=== PATIENT | male | born 1995 | race Caucasian/White ===

== ENCOUNTER 2017-12-16 14:06 | Emergency (ER) | payer OTHER ==
[2017-12-16] MEDS ORDERED: TETRACAINE HCL 0.5% 2ML OPTH ONE (19:13)
[2017-12-16] MEDS ORDERED: FLUORESCEIN SODIUM 0.6 MG/WRAP ONE (19:14)
--- NOTE | 2017-12-16 19:30 | EDPHYS ---
Physician Documentation [facility] Name: Emery De La Rosa Age: 22 yrs Sex: Male : 1995 Arrival Date: 12/16/2017 Time: 14:09 Bed Treatment Private MD: ED Physician Cb Arnold HPI: 12/16 19:00 This 22 yrs old Male presents to ER via Wheelchair with complaints of Eye pm1 Problem. 19:00 The patient is experiencing redness, The patient sustained got a piece of pizza in his pm1 left eye. Onset: The symptoms/episode began/occurred 3 day(s) ago. Duration: the symptoms are continuous. Aggravated by nothing. Alleviated by eye flush. Associated signs and symptoms: Pertinent negatives: fever. Patient does not utilize any form of vision correction. Severity of symptoms: in the emergency department the symptoms have improved. The patient has not experienced similar symptoms in the past. The patient has not recently seen a physician. Historical: - Allergies: 14:31 Latex, Natural Rubber; aa5 - Home Meds: 14:31 None [Active]; aa5 - PMHx: 14:31 spina bifida; Shunt; Hydrocephalus; aa5 - PSHx: 14:31 Multiple back surgeries; aa5 - Immunization history:: Adult Immunizations up to date. - Social history:: Smoking status: Patient/guardian denies using tobacco. - Ebola Screening: : Patient denies exposure to infectious person Patient denies travel to an Ebola-affected area in the 21 days before illness onset. ROS: 19:00 Constitutional: Negative for fever, chills, and weight loss. pm1 19:00 ENT: Negative for injury, pain, and discharge, Neck: Negative for injury, pain, and swelling, Cardiovascular: Negative for chest pain, palpitations, and edema, Respiratory: Negative for shortness of breath, cough, wheezing, and pleuritic chest pain, Abdomen/GI: Negative for abdominal pain, nausea, vomiting, diarrhea, and constipation, Back: Negative for injury and pain, MS/Extremity: Negative for injury and deformity, Skin: Negative for injury, rash, and discoloration, Neuro: Negative for headache, weakness, numbness, tingling, and seizure. 19:00 Eyes: Positive for redness, Negative for foreign body sensation, pain, vision loss, visual disturbance. Exam: 19:00 Constitutional: This is a well developed, well nourished patient who is awake, alert, pm1 and in no acute distress. Head/Face: Normocephalic, atraumatic. 19:00 ENT: Nares patent. No nasal discharge, no septal abnormalities noted. Tympanic membranes are normal and external auditory canals are clear. Oropharynx with no redness, swelling, or masses, exudates, or evidence of obstruction, uvula midline. Mucous membranes moist. Neck: Trachea midline, no thyromegaly or masses palpated, and no cervical lymphadenopathy. Supple, full range of motion without nuchal rigidity, or vertebral point tenderness. No Meningismus. Chest/axilla: Normal chest wall appearance and motion. Nontender with no deformity. No lesions are appreciated. Cardiovascular: Regular rate and rhythm with a normal S1 and S2. No gallops, murmurs, or rubs. Normal PMI, no JVD. No pulse deficits. Respiratory: Lungs have equal breath sounds bilaterally, clear to auscultation and percussion. No rales, rhonchi or wheezes noted. No increased work of breathing, no retractions or nasal flaring. Abdomen/GI: Soft, non-tender, with normal bowel sounds. No distension or tympany. No guarding or rebound. No evidence of tenderness throughout. Back: No spinal tenderness. No costovertebral tenderness. Full range of motion. Skin: Warm, dry with normal turgor. Normal color with no rashes, no lesions, and no evidence of cellulitis. MS/ Extremity: Pulses equal, no cyanosis. Neurovascular intact. Full, normal range of motion. 19:00 Eyes: Periorbital structures: appear normal, Pupils: no acute changes, equal, round, and reactive to light and accomodation, Extraocular movements: intact throughout, Conjunctiva: injected, in the left eye, Corneas: are normal, no acute changes, abrasion, is not appreciated, foreign body, is not appreciated, a fluorescein strip employed to appreciate the findings. Vital Signs: 14:31 BP 130 / 75; Pulse 93; Resp 16; Temp 98.1(TE); Pulse Ox 98% ; Weight 84.82 kg; aa5 19:41 BP 128 / 77; Pulse 74; Resp 16; Temp 97.9(O); Pulse Ox 98% on R/A; mt Visual Acuity: 19:14 Left Eye Visual acuity 20/25, Pupil size 5 mm, ; Right Eye Visual acuity 20/20, Pupil bb size 5 mm, ; Both Eyes Visual acuity 20/25; Without Lenses; MDM: 18:48 Patient medically screened. pm1 19:27 Data reviewed: vital signs. Data interpreted: Pulse oximetry: on room air is 98 %. pm1 Interpretation: normal. Counseling: I had a detailed discussion with the patient and/or guardian regarding: the historical points, exam findings, and any diagnostic results supporting the discharge/admit diagnosis, the need for outpatient follow up, to return to the emergency department if symptoms worsen or persist or if there are any questions or concerns that arise at home. 12/16 18:52 Order name: Visual Acuity; Complete Time: 19:14 pm1 12/16 18:52 Order name: Eye Tray; Complete Time: 19:14 pm1 12/16 18:52 Order name: Fluoresene Opth strip; Complete Time: 19:14 pm1 Administered Medications: 19:20 Drug: Tetracaine Drops 0.5 % 1 drops Route: Ophthalmic; Site: left eye; sg Disposition: 12/16/17 19:29 Discharged to Home. Impression: Injury of conjunctiva and corneal abrasion without foreign body, left eye. - Condition is Stable. - Discharge Instructions: Eye Contusion. - Prescriptions for Erythromycin 5 mg/gram (0.5 %) Ophthalmic Ointment - apply 1 ribbon by OPHTHALMIC route every 8 hours; 1 tube. - Medication Reconciliation Form, Thank You Letter, Antibiotic Education form. - Follow up: Emergency Department; When: As needed; Reason: Worsening of condition. Follow up: Private Physician; When: 2 - 3 days; Reason: Recheck today's complaints, Continuance of care, Re-evaluation by your physician. - Problem is new. - Symptoms have improved. Addendum: 12/20/2017 07:07 Co-signature as Attending Physician, Cb Arnold MD I agree with the assessment and k dr plan of care. Signatures: Zana Paz RN RN Cb Arnold MD MD [facility] Geetha Lopez RN RN aa5 Branden Courtney NP TAPER MACHINE pm1 Corrections: (The following items were deleted from the chart) 12/16 19:59 19:29 12/16/2017 19:29 Discharged to Home. Impression: Injury of conjunctiva and sg corneal abrasion without foreign body, left eye. Condition is Stable. Forms are Medication Reconciliation Form, Thank You Letter, Antibiotic Education, Prescription Opioid Use. Follow up: Emergency Department; When: As needed; Reason: Worsening of condition. Follow up: Private Physician; When: 2 - 3 days; Reason: Recheck today's complaints, Continuance of care, Re-evaluation by your physician. Problem is new. Symptoms have improved. pm1
--- NOTE | 2017-12-16 19:30 | ER ---
Nurse's Notes [facility] Name: Emery De La Rosa Age: 22 yrs Sex: Male : 1995 Arrival Date: 12/16/2017 Time: 14:09 Bed Treatment Private MD: Diagnosis: Injury of conjunctiva and corneal abrasion without foreign body, left eye Presentation: 12/16 14:30 Presenting complaint: Patient states: L eye pain and redness that began 5 days ago aa5 after eating pizza. Transition of care: patient was not received from another setting of care. Onset of symptoms was December 12, 2017. Risk Assessment: Do you want to hurt yourself or someone else? Patient reports no desire to harm self or others. Initial Sepsis Screen: Does the patient meet any 2 criteria? No. Patient's initial sepsis screen is negative. Does the patient have a suspected source of infection? No. Patient's initial sepsis screen is negative. Care prior to arrival: None. 14:30 Method Of Arrival: Wheelchair aa5 14:30 Acuity: MICAH 5 aa5 Historical: - Allergies: 14:31 Latex, Natural Rubber; aa5 - Home Meds: 14:31 None [Active]; aa5 - PMHx: 14:31 spina bifida; Shunt; Hydrocephalus; aa5 - PSHx: 14:31 Multiple back surgeries; aa5 - Immunization history:: Adult Immunizations up to date. - Social history:: Smoking status: Patient/guardian denies using tobacco. - Ebola Screening: : Patient denies exposure to infectious person Patient denies travel to an Ebola-affected area in the 21 days before illness onset. Screenin:50 Abuse screen: Denies threats or abuse. Denies injuries from another. Nutritional sg screening: No deficits noted. Tuberculosis screening: No symptoms or risk factors identified. Never had TB. Fall Risk None identified. Assessment: 19:10 General: Appears in no apparent distress. Behavior is calm, cooperative. Pain: Denies bb pain. Neuro: Level of Consciousness is awake, alert, obeys commands, Oriented to person, place, time, situation. Cardiovascular: No deficits noted. Respiratory: Respiratory effort is even, unlabored. GI: No signs and/or symptoms were reported involving the gastrointestinal system. EENT: left eye reddened. Derm: Skin is pink, warm \T\ dry. Vital Signs: 14:31 BP 130 / 75; Pulse 93; Resp 16; Temp 98.1(TE); Pulse Ox 98% ; Weight 84.82 kg; aa5 19:41 BP 128 / 77; Pulse 74; Resp 16; Temp 97.9(O); Pulse Ox 98% on R/A; mt Visual Acuity: 19:14 Left Eye Visual acuity 20/25, Pupil size 5 mm, ; Right Eye Visual acuity 20/20, Pupil bb size 5 mm, ; Both Eyes Visual acuity 20/25; Without Lenses; ED Course: 14:09 Patient arrived in ED. sb2 14:31 Triage completed. aa5 14:31 Arm band placed on right wrist. aa5 18:26 Branden Courtney NP is PHCP. pm1 18:26 Cb Arnold MD is Attending Physician. pm1 19:50 Patient has correct armband on for positive identification. Pulse ox on. NIBP on. sg 19:50 Assist provider with eye exam. Patient did not have IV access during this emergency sg room visit. Administered Medications: 19:20 Drug: Tetracaine Drops 0.5 % 1 drops Route: Ophthalmic; Site: left eye; sg Outcome: 19:29 Discharge ordered by MD. pm1 19:55 Discharged to home via wheelchair. sg 19:55 Condition: good 19:55 Discharge instructions given to patient, Instructed on discharge instructions, follow up and referral plans. medication usage, safety practices, Demonstrated understanding of instructions, follow-up care, medications, Prescriptions given X 1. 19:59 Patient left the ED. sg Signatures: Zana Paz RN RN Deborah Garcia RN RN bb Calderon, Audri, RN RN [facility] Branden Courtney NP [employer] pm1 Lina Santos me Ariana Carpenter sb2 Corrections: (The following items were deleted from the chart) 19:57 19:20 Tetracaine Drops 0.5 % 1 drops Ophthalmic in right eye sg sg
[2017-12-16 21:07] VITALS: O2SAT 98
[2017-12-16 21:08] VITALS: BP 128/77; TEMP 97.9
== END 2017-12-16 19:59 | disposition home or self-care (01) ==
LOC: ER 14:06
DX: S05.02XA Injury of conjunctiva and corneal abrasion without foreign body, left eye, initial encounter (principal); X58.XXXA Exposure to other specified factors, initial encounter; Y92.019 Unspecified place in single-family (private) house as the place of occurrence of the external cause; Z91.040 Latex allergy status; Z91.048 Other nonmedicinal substance allergy status; Q05.4 Unspecified spina bifida with hydrocephalus
CPT/HCPCS: 99284

== ENCOUNTER 2018-06-16 07:04 | Day surgery (SDC) | payer OTHER ==
[2018-06-13 11:57] LABS: Absolute Lymphocytes (CBC) 1.9 K/uL (0.7-4.9); Absolute Monocytes 0.6 K/uL (0.1-1.3); Absolute Neutrophil 4.2 K/uL (1.8-8.0); Basophils % 0.6 % (0-1.3); Eosinophils % 1.8 % (0-4.4); Hematocrit 44.2 % (39.6-49.0); Lymphocytes % 27.5 % (15.3-44.8); MPV 8.2 fL (7.6-11.3); Monocytes % 8.8 % (3.3-12.3); RBC Red Blood Cell Count 5.07 M/uL (4.33-5.43)
[2018-06-13 12:00] LABS: Protime INR 1.11
[2018-06-13 12:04] LABS: BUN Blood Urea Nitrogen 20 mg/dL (7-18); Bicarbonate 31 mmol/L (21-32); Glucose Level 91 mg/dL (74-106); Potassium 4.3 mmol/L (3.5-5.1); Sodium Level 139 mmol/L (136-145)
[2018-06-16] MEDS ORDERED: Ringers Lactate 1,000 ML IV ONE (07:27)
[2018-06-16] MEDS ORDERED: LIDOCAINE 1% MPF 30 ML VIAL ONE (07:41)
[2018-06-16] MEDS ORDERED: BUPIVACAINE 0.5% PF 10 ML VIAL ONE (07:41)
[2018-06-16] MEDS ORDERED: MIDAZOLAM HCL 2 MG/2 ML INJ ONE (08:12)
[2018-06-16] MEDS ORDERED: PROPOFOL 200 MG/20 ML VIAL IV ONE (08:20)
[2018-06-16] MEDS ORDERED: LIDOCAINE 2% MPF 5 ML VIAL ONE (08:22)
--- NOTE | 2018-06-16 08:46 | P.OP ---
Preoperative diagnosis: right hallux osteomyelitis Postoperative diagnosis: same Primary procedure: right hallux ipj amputation Secondary procedure: none Other procedure(s): none Anesthesia: tiva with 5 cc 1:1 0.5% marcaine/1%lidocaine plain Estimated blood loss: <10cc Specimen: bone Findings: as above Operative Technique: Patient placed in the supine position. Iv sedation administered with 5cc 1:1 0.5% marcaine/1% lidocaine plain right hallux. Patient prepped and draped in usual aseptic manner. Right LE exsanguinated utilizing esmarch bandage and PAT inflated to 250 mmHg. Attention directed to right hallux at which time erythema and ulceration noted distal aspect with bone exposure. At this time two converging semieliptical incision place over IPJ. Skin incision carried straight to bone. Bone disarticulated at ipj. Wound irrigated with copious amounts of NSS. Closure obtained with 3-0 prolene. PAT deflated with prompt hyperemic response being noted. Dressing applied consisting of xeroform, 4X4s, kerlix and pedro wrap. Patient transferred from OR to recovery with vss Complications: None Transferred to: Recovery Room Condition: Good
[2018-06-16 09:13] VITALS: BP 107/68; TEMP 97; O2SAT 98
== END 2018-06-16 09:29 | disposition home or self-care (01) ==
LOC: OR 07:04
PROVIDERS: ATTEND Podiatrist Foot & Ankle Surgery
PROC: 0Y6P0Z3 Detachment at Right 1st Toe, Low, Open Approach (ICD-10-PCS; principal; 2018-06-16 08:15)
DX: M86.8X7 Other osteomyelitis, ankle and foot (principal); Q05.9 Spina bifida, unspecified; Z91.040 Latex allergy status
CPT/HCPCS: 36415; 80048; 85025; 85610; 85730; 88304; 88305; 88311; J2250; J2704

== ENCOUNTER 2018-09-01 12:16 | Emergency (ER) | payer OTHER ==
[2018-09-01 13:28] LABS: Urine Blood NEGATIVE (NEG); Urine Glucose NEGATIVE (NEG); Urine Protein NEGATIVE (NEG); Urine Specific Gravity 1.015 (1.005-1.030)
--- NOTE | 2018-09-01 13:33 | ER ---
Nurse's Notes [facility] Name: Emery De La Rosa Age: 23 yrs Sex: Male : 1995 Arrival Date: 09/01/2018 Time: 12:18 Bed 17 Private MD: out of town, doctor Diagnosis: Muscle spasm of back Presentation: 09/01 12:21 Presenting complaint: Patient states: hx of spina bifida, i had this mid back pain that hj started 2 weeks ago, denies skin breakdown; denies fever and chills;. Transition of care: patient was not received from another setting of care. Onset of symptoms was September 01, 2018. Risk Assessment: Do you want to hurt yourself or someone else? Patient reports no desire to harm self or others. Initial Sepsis Screen: Does the patient meet any 2 criteria? No. Patient's initial sepsis screen is negative. Does the patient have a suspected source of infection? No. Patient's initial sepsis screen is negative. Care prior to arrival: None. 12:21 Method Of Arrival: Ambulatory 12:21 Acuity: MICAH 4 hj Triage Assessment: 12:23 General: Appears in no apparent distress. uncomfortable, Behavior is calm, cooperative, hj appropriate for age. Pain: Complains of pain in back. Musculoskeletal: Circulation, motion, and sensation intact. Capillary refill < 3 seconds. Historical: - Allergies: 12:23 Latex, Natural Rubber; hj - Home Meds: 12:23 None [Active]; hj - PMHx: 12:23 Hydrocephalus; Shunt; spina bifida; hj - PSHx: 12:23 Multiple back surgeries; hj - Immunization history:: Adult Immunizations not up to date. - Social history:: Smoking status: Patient/guardian denies using tobacco, Patient uses alcohol. - Ebola Screening: : Patient negative for fever greater than or equal to 101.5 degrees Fahrenheit, and additional compatible Ebola Virus Disease symptoms Patient denies exposure to infectious person Patient denies travel to an Ebola-affected area in the 21 days before illness onset. Screenin:23 Abuse screen: Denies threats or abuse. Denies injuries from another. Nutritional hj screening: No deficits noted. Tuberculosis screening: No symptoms or risk factors identified. Fall Risk None identified. Assessment: 12:35 General: Appears in no apparent distress. Behavior is calm, cooperative. Pain: ed1 Complains of pain in mid back area Pain does not radiate. Pain currently is 10 out of 10 on a pain scale. Quality of pain is described as aching, Pain began about 2 weeks ago. Neuro: Level of Consciousness is awake, alert, obeys commands, Oriented to person, place, time, situation. Cardiovascular: Denies chest pain, Heart tones S1 S2 present. Respiratory: Airway is patent Respiratory effort is even, unlabored, Respiratory pattern is regular, symmetrical, Breath sounds are clear bilaterally. Denies cough, shortness of breath. GI: No signs and/or symptoms were reported involving the gastrointestinal system. : Reports using self catheters. EENT: No signs and/or symptoms were reported regarding the EENT system. Derm: Skin is intact, is healthy with good turgor, Skin is dry, Skin is normal, Skin temperature is warm. Musculoskeletal: pt wheelchair bound, able to transfer self to bed from wheelchair. 12:50 Reassessment: Pt assisted to bathroom to perform straight cath for urine sample. ed1 13:25 Reassessment: Patient appears in no apparent distress at this time. No changes from ed1 previously documented assessment. Patient and/or family updated on plan of care and expected duration. Pain level reassessed. Patient is alert, oriented x 3, equal unlabored respirations, skin warm/dry/pink. Patient states symptoms have not improved. Vital Signs: 12:24 BP 122 / 80; Pulse 83; Resp 18; Temp 99.4(O); Pulse Ox 98% on R/A; Weight 83.91 kg; Height 5 ft. 6 in. (167.64 cm); Pain 10/10; 13:25 BP 124 / 72; Pulse 73; Resp 17; Pulse Ox 100% on R/A; Pain 10/10; ed1 12:24 Body Mass Index 29.86 (83.91 kg, 167.64 cm) ED Course: 12:18 Patient arrived in ED. mr 12:19 out of town, doctor is Private Physician. mr 12:23 Triage completed. 12:24 Arm band placed on right wrist. 12:24 Patient has correct armband on for positive identification. Bed in low position. Call light in reach. Side rails up X 1. 12:29 Roszak, Darryn, PA is PHCP. jr8 12:29 Cb Arnold MD is Attending Physician. jr8 12:32 Hannah Sandra, RN is Primary Nurse. ed1 13:46 No provider procedures requiring assistance completed. Patient did not have IV access ed1 during this emergency room visit. Administered Medications: No medications were administered Outcome: 13:32 Discharge ordered by . jr8 13:46 Discharged to home via wheelchair. ed1 13:46 Condition: good 13:46 Discharge instructions given to patient, Instructed on discharge instructions, follow up and referral plans. medication usage, Demonstrated understanding of instructions, follow-up care, medications, Prescriptions given X 2. 13:47 Patient left the ED. ed1 Signatures: Blank Lisset mr Hannah Sandra, RN RN ed1 Darryn Hyatt PA PA jr8 Pavel Kong RN RN hj Corrections: (The following items were deleted from the chart) 12:27 12:24 Pulse 83bpm; Resp 18bpm; Pulse Ox 98% RA; Temp 99.4F Oral; 83.91 kg; Height 5 ft. hj 6 in.; BMI: 29.8; Pain 10/10; hj
--- NOTE | 2018-09-01 13:33 | EDPHYS ---
Physician Documentation [facility] Name: Emery De La Rosa Age: 23 yrs Sex: Male : 1995 Arrival Date: 09/01/2018 Time: 12:18 Bed 17 Private MD: out of town, doctor ED Physician Cb Arnold HPI: 09/01 13:31 This 23 yrs old Male presents to ER via Ambulatory with complaints of Back jr8 Pain. 13:31 The patient presents with pain that is acute. The symptoms are located in the left mid jr8 back and right mid back. Onset: The symptoms/episode began/occurred gradually, 2 day(s) ago. The pain does not radiate. Associated signs and symptoms: The patient has no apparent associated signs or symptoms. The problem was sustained from unknown cause. Modifying factors: The patient symptoms are alleviated by nothing, the patient symptoms are aggravated by bending, movement. Severity of symptoms: At their worst the symptoms were moderate, in the emergency department the symptoms are unchanged. The patient has not experienced similar symptoms in the past. The patient has not recently seen a physician. Denies trauma. Historical: - Allergies: 12:23 Latex, Natural Rubber; hj - Home Meds: 12:23 None [Active]; hj - PMHx: 12:23 Hydrocephalus; Shunt; spina bifida; hj - PSHx: 12:23 Multiple back surgeries; hj - Immunization history:: Adult Immunizations not up to date. - Social history:: Smoking status: Patient/guardian denies using tobacco, Patient uses alcohol. - Ebola Screening: : Patient negative for fever greater than or equal to 101.5 degrees Fahrenheit, and additional compatible Ebola Virus Disease symptoms Patient denies exposure to infectious person Patient denies travel to an Ebola-affected area in the 21 days before illness onset. ROS: 13:31 Eyes: Negative for injury, pain, redness, and discharge, ENT: Negative for injury, jr8 pain, and discharge, Neck: Negative for injury, pain, and swelling, Cardiovascular: Negative for chest pain, palpitations, and edema, Respiratory: Negative for shortness of breath, cough, wheezing, and pleuritic chest pain, Abdomen/GI: Negative for abdominal pain, nausea, vomiting, diarrhea, and constipation, MS/Extremity: Negative for injury and deformity, Skin: Negative for injury, rash, and discoloration, Neuro: Negative for headache, weakness, numbness, tingling, and seizure. 13:31 Back: Positive for pain at rest, pain with movement, of the left mid back and right mid back. Exam: 13:31 Eyes: Pupils equal round and reactive to light, extra-ocular motions intact. Lids and jr8 lashes normal. Conjunctiva and sclera are non-icteric and not injected. Cornea within normal limits. Periorbital areas with no swelling, redness, or edema. ENT: Nares patent. No nasal discharge, no septal abnormalities noted. Tympanic membranes are normal and external auditory canals are clear. Oropharynx with no redness, swelling, or masses, exudates, or evidence of obstruction, uvula midline. Mucous membranes moist. Neck: Trachea midline, no thyromegaly or masses palpated, and no cervical lymphadenopathy. Supple, full range of motion without nuchal rigidity, or vertebral point tenderness. No Meningismus. Cardiovascular: Regular rate and rhythm with a normal S1 and S2. No gallops, murmurs, or rubs. Normal PMI, no JVD. No pulse deficits. Respiratory: Lungs have equal breath sounds bilaterally, clear to auscultation and percussion. No rales, rhonchi or wheezes noted. No increased work of breathing, no retractions or nasal flaring. Abdomen/GI: Soft, non-tender, with normal bowel sounds. No distension or tympany. No guarding or rebound. No evidence of tenderness throughout. Skin: Warm, dry with normal turgor. Normal color with no rashes, no lesions, and no evidence of cellulitis. MS/ Extremity: Pulses equal, no cyanosis. Neurovascular intact. Full, normal range of motion. Neuro: Awake and alert, GCS 15, oriented to person, place, time, and situation. Cranial nerves II-XII grossly intact. Motor strength 5/5 in all extremities. Sensory grossly intact. Cerebellar exam normal. Normal gait. 13:31 Back: pain, that is moderate, of the left mid back and right mid back, ROM is painful, normal spinal alignment noted, CVA tenderness, is absent, muscle spasm, is appreciated in the left mid back and right mid back. Vital Signs: 12:24 BP 122 / 80; Pulse 83; Resp 18; Temp 99.4(O); Pulse Ox 98% on R/A; Weight 83.91 kg; hj Height 5 ft. 6 in. (167.64 cm); Pain 10/10; 13:25 BP 124 / 72; Pulse 73; Resp 17; Pulse Ox 100% on R/A; Pain 10/10; ed1 12:24 Body Mass Index 29.86 (83.91 kg, 167.64 cm) hj MDM: 12:42 Patient medically screened. jr8 13:31 Data reviewed: vital signs, nurses notes, lab test result(s), and as a result, I will jr8 discharge patient. Data interpreted: Pulse oximetry: on room air is 100 %. Interpretation: normal. Counseling: I had a detailed discussion with the patient and/or guardian regarding: the historical points, exam findings, and any diagnostic results supporting the discharge/admit diagnosis, lab results, the need for outpatient follow up, a family practitioner, to return to the emergency department if symptoms worsen or persist or if there are any questions or concerns that arise at home. 09/01 13:14 Order name: Urine Dipstick--Ancillary (enter results); Complete Time: 13:31 09/01 12:49 Order name: Urine Dipstick-Ancillary (obtain specimen); Complete Time: 13:24 jr Administered Medications: No medications were administered Disposition: 15:44 Co-signature as Attending Physician, Cb Arnold MD I agree with the assessment and kdr plan of care. Disposition: 09/01/18 13:32 Discharged to Home. Impression: Muscle spasm of back. - Condition is Stable. - Discharge Instructions: Muscle Cramps and Spasms, Back Exercises, [id number], Heat Therapy. - Prescriptions for Ultracet 37.5- 325 mg Oral Tablet - take 1 tablet by ORAL route every 6 hours - for up to 5 days; do not exceed 8 tablets per day.; 30 tablet. Zanaflex 4 mg Oral Tablet - take 1 tablet by ORAL route every 8 hours As needed; 20 tablet. - Medication Reconciliation Form, Thank You Letter, Antibiotic Education, Prescription Opioid Use form. - Follow up: Private Physician; When: 5 - 6 days; Reason: Recheck today's complaints, Continuance of care, Re-evaluation by your physician. - Problem is new. - Symptoms have improved. Signatures: Dispatcher [employer] EDMS Cb Arnold MD MD kdr Hannah Sandra RN RN ed1 Darryn Hyatt PA PA jr8 Pavel Kong RN RN hj Corrections: (The following items were deleted from the chart) 13:47 13:32 09/01/2018 13:32 Discharged to Home. Impression: Muscle spasm of back. Condition ed1 is Stable. Forms are Medication Reconciliation Form, Thank You Letter, Antibiotic Education, Prescription Opioid Use. Follow up: Private Physician; When: 5 - 6 days; Reason: Recheck today's complaints, Continuance of care, Re-evaluation by your physician. Problem is new. Symptoms have improved. jr8
[2018-09-01 13:52] VITALS: TEMP 99.4
[2018-09-01 13:54] VITALS: BP 124/72; O2SAT 100
== END 2018-09-01 13:47 | disposition home or self-care (01) ==
LOC: ER 12:16
DX: M62.830 Muscle spasm of back (principal); Z91.040 Latex allergy status; Z91.048 Other nonmedicinal substance allergy status
CPT/HCPCS: 81003; 99282

== ENCOUNTER 2020-05-01 13:39 | Emergency (ER) | payer OTHER ==
[2020-05-01] MEDS ORDERED: FENTANYL CITR 100 MCG/2 ML ONE (14:46)
[2020-05-01] MEDS ORDERED: ONDANSETRON 4 MG/2 ML VIAL ONE (14:46)
[2020-05-01 15:05] LABS: Absolute Lymphocytes (CBC) 1.1 K/uL (0.7-4.9); Basophils % 0.2 % (0-1.3); Hematocrit 43.8 % (39.6-49.0); Lymphocytes % 5.8 % (15.3-44.8); MPV 8.6 fL (7.6-11.3); RBC Red Blood Cell Count 4.97 M/uL (4.33-5.43)
[2020-05-01 15:23] LABS: ALT/SGPT 24 U/L (12-78); AST/SGOT 13 U/L (15-37); Alkaline Phosphatase 81 U/L (45-117); BUN Blood Urea Nitrogen 13 mg/dL (7-18); Bicarbonate 26 mmol/L (21-32); Bilirubin Total 0.7 mg/dL (0.2-1.0); Glucose Level 110 mg/dL (74-106); Potassium 3.7 mmol/L (3.5-5.1); Protein, Total 7.8 g/dL (6.4-8.2); Sodium Level 138 mmol/L (136-145)
--- NOTE | 2020-05-01 16:15 | RAD REPORT ---
EXAM DESCRIPTION: US - Scrotum Testicles - 05/01/2020 3:35 pm CLINICAL HISTORY: scrotal swelling COMPARISON: Scrotum Testicles dated 06/12/2016 FINDINGS: Testicular tissue is homogeneous with no focal testicular mass. Doppler evaluation shows n ormal blood flow within the testicular tissue. Small to moderate size right-sided hydrocele present w ith echogenic debris within the fluid. Trace amount of fluid noted on the left. No epididymis enlarge ment or hyperemia. Scrotal wall appears slightly thickened. No focal mass or fluid collection in the scrotal wall. IMPRESSION: No intratesticular mass or abnormality. Normal blood flow seen within the testicular tis kirsten. No epididymis enlargement or hyperemia. Right-sided hydrocele with trace left-sided fluid.
[2020-05-01] MEDS ORDERED: NA CHLORIDE 0.9% 1,000 ML ONE (16:49)
[2020-05-01 16:55] LABS: Urine Blood 1+ (NEG); Urine Glucose 1+ (NEG); Urine Protein TRACE (NEG); Urine pH 7.5 (5.0-7.0)
--- NOTE | 2020-05-01 16:57 | RAD REPORT ---
EXAM DESCRIPTION: CT - Abdomen Pelvis W Contrast - 05/01/2020 4:44 pm CLINICAL HISTORY: lower abdominal pain, groin pain COMPARISON: No comparisons TECHNIQUE: Biphasic, helical CT imaging of the abdomen and pelvis was performed following 100 ml non -ionic IV contrast. No oral contrast administered acetabular abnormalities. 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 All CT scans are performed using dose optimization technique as appropriate and may include automated exposure control or mA/KV adjustment according to patient size. FINDINGS: No suspicious findings in the lung bases. Liver size is normal with attenuation deformity of each acetabulum and femoral head noted. Patient ma y have diminished or absent ambulation. Borderline fatty infiltrated. No focal liver lesions. Spleen and pancreas show no suspicious findings. Gallbladder and biliary tree are also without suspicious fi nding. Symmetric renal function is seen with no hydronephrosis or suspicious renal mass. No pyelonephritis o r acute parenchymal process. No bladder abnormalities. No adrenal abnormalities. Urinary bladder is contracted. Prostate gland and seminal vesicles are normal. Prostate gland is low lying along the pelvic floor the patient may have chronic pelvic laxity. No dilated bowel loops or bowel wall thickening. Appendix is normal. There is no active GI process id entifiable. CHECK TOTALER shunt tube is in place. Only trace amounts of free fluid in the peritoneal cavity. No free air or pneumatosis. No inflammatory stranding. No hernia, mass or bulky lymphadenopathy. Patient has accentuated lordosis in addition to the lower lumbar spine with congenital deformity eryn g the posterior elements at the lumbosacral junction. Soft tissue thickening is present from the post erior elements to the skin surface in this region. This is believed to be chronic. The adjacent fat s hows no edema or stranding. No inguinal hernia. No mass or fluid in either inguinal canal. Scrotal fluid is present addressed in the separate ultrasound report. IMPRESSION: Contrast enhanced CT abdomen and pelvis showing no acute or emergent finding. Nonacute findings detailed in the body of the report.
--- NOTE | 2020-05-01 18:22 | EDPHYS ---
Physician Documentation [facility] Name: Emery De La Rosa Age: 24 yrs Sex: Male : 1995 Arrival Date: 05/01/2020 Time: 13:39 Bed 24 Private MD: ED Physician Cb Arnold HPI: 05/01 14:15 This 24 yrs old Male presents to ER via Wheelchair with complaints of jmm Testicular Swelling. 14:15 The patient presents with swelling, that is moderate. Onset: The symptoms/episode jmm began/occurred gradually, this morning. Modifying factors: The symptoms are alleviated by nothing, the symptoms are aggravated by pressure. Associated signs and symptoms: Pertinent positives: abdominal pain, Pertinent negatives: dysuria, fever. This is a 34 year old male with a history of spina bifida that presents to the ED with complaints of left scrotal pain which awoke this patient at 4 am. Denies fever, denies dysuria. . Historical: - Allergies: 13:43 Latex, Natural Rubber; sv - PMHx: 13:43 Hydrocephalus; Shunt; spina bifida; sv - PSHx: 13:43 Multiple back surgeries; sv - Immunization history:: Flu vaccine is not up to date. - Social history:: Smoking status: Patient denies any tobacco usage or history of. ROS: 14:15 Constitutional: Negative for fever, chills, and weight loss, Cardiovascular: Negative jmm for chest pain, palpitations, and edema, Respiratory: Negative for shortness of breath, cough, wheezing, and pleuritic chest pain. 14:15 : Positive for testicular pain 14:15 All other systems are negative. Exam: 14:15 Constitutional: This is a well developed, well nourished patient who is awake, alert, jmm and in no acute distress. Head/Face: atraumatic. Eyes: EOMI, no conjunctival erythema appreciated ENT: Moist Mucus Membranes Neck: Trachea midline, Supple Chest/axilla: Normal chest wall appearance and motion. Respiratory: Normal respirations, no respiratory distress appreciated 14:15 Back: Normal ROM Skin: General appearance color normal MS/ Extremity: Moves all extremities, no obvious deformities appreciated, no edema noted to the lower extremities Neuro: Awake and alert, normal gait Psych: Behavior is normal, Mood is normal, Patient is cooperative and pleasant 14:15 Cardiovascular: Rate: tachycardic, Rhythm: regular. 14:15 : Male external genitalia: erythema, of the left testicle is seen. Vital Signs: 13:43 BP 131 / 81; Pulse 125; Resp 20; Temp 98.7; Pulse Ox 99% ; sv 14:12 BP 148 / 57; Pulse 135; Resp 17 S; Pulse Ox 97% on R/A; ca1 15:15 BP 139 / 73; Pulse 135; Resp 17; Pulse Ox 95% on R/A; ca1 17:07 BP 121 / 63; Pulse 121; Resp 17 S; Pulse Ox 97% on R/A; ca1 18:09 BP 120 / 73; Pulse 121; Resp 18 S; Pulse Ox 98% on R/A; ca1 18:26 BP 133 / 82; Pulse 117; Resp 18 S; Pulse Ox 97% on R/A; ca1 MDM: 14:26 Patient medically screened. [facility] 18:19 Data reviewed: vital signs, nurses notes. Counseling: I had a detailed discussion with meghana the patient and/or guardian regarding: the historical points, exam findings, and any diagnostic results supporting the discharge/admit diagnosis, lab results, radiology results, the need for outpatient follow up, to return to the emergency department if symptoms worsen or persist or if there are any questions or concerns that arise at home. ED course: Patient is alert and non toxic in appearance in the ED. Pe findings concerning for cellulitis, will cover with oral abx. UA reveals concerns for UTI as well. Patient is advised to follow up with pcp and otherwise given strict return precautions. Patient understood and agrees with the plan of care. . 05/01 14:28 Order name: CBC with Diff; Complete Time: 15:24 [facility] 05/01 14:28 Order name: CMP; Complete Time: 15:24 [facility] 05/01 16:21 Order name: Lactate; Complete Time: 18:08 [facility] 05/01 16:21 Order name: Procalcitonin; Complete Time: 18:14 [facility] 05/01 16:21 Order name: Blood Culture Adult (2) [facility] 05/01 14:16 Order name: US Scrotum Testicles; Complete Time: 16:17 [facility] 05/01 16:21 Order name: CT Abd/Pelvis - IV Contrast Only; Complete Time: 17:01 [facility] 05/01 16:32 Order name: Urine Culture 05/01 16:35 Order name: Urine Dipstick--Ancillary (enter results); Complete Time: 17:01 05/01 14:28 Order name: Saline Lock; Complete Time: 16:31 [facility] 05/01 14:28 Order name: Urine Dipstick-Ancillary (obtain specimen); Complete Time: 16:30 [facility] Administered Medications: 14:39 Drug: Zofran (Ondansetron) 4 mg Route: IVP; Site: right wrist; ca1 15:22 Follow up: Response: No adverse reaction hb 18:31 Follow up: Response: No adverse reaction; Nausea is decreased ca1 14:41 Drug: fentaNYL (PF) 50 mcg {Note: rass 0.} Route: IVP; Site: right wrist; ca1 15:22 Follow up: Response: No adverse reaction hb 15:30 Follow up: Response: No adverse reaction; Pain is decreased; RASS: Alert and Calm (0) ca1 17:00 Drug: NS 0.9% 1000 ml Route: IV; Rate: 1 bolus; Site: right wrist; ca1 19:54 Follow up: IV Intake: 1000ml fu 18:19 Drug: Rocephin 1 grams Route: IV; Rate: calculated rate; Site: right wrist; ca1 18:30 Drug: TORadol 30 mg Route: IVP; Site: right wrist; ca1 Disposition: 05/02 15:59 Co-signature as Attending Physician, Cb Anrold MD I agree with the assessment and kdr plan of care. Disposition: 05/01/20 18:21 Discharged to Home. Impression: Scrotal Cellulitis, UTI. - Condition is Stable. - Discharge Instructions: Cellulitis, Adult, Urinary Tract Infection, Adult. - Prescriptions for Cephalexin 500 mg Oral Capsule - take 1 capsule by ORAL route every 6 hours for 10 days; 40 capsule. Bactrim DS 800- 160 mg Oral Tablet - take 1 tablet by ORAL route every 12 hours for 10 days; 20 tablet. - Medication Reconciliation Form, Thank You Letter, Antibiotic Education, Prescription Opioid Use form. - Follow up: Private Physician; When: 2 - 3 days; Reason: Recheck today's complaints, Continuance of care, Re-evaluation by your physician. Signatures: Dispatcher [facility] EDMS Rose Mary, Keyonna, RN Cb Vega MD MD kdr Mickail, Joel, PA PA jmm Umadhay, Felix, RN RN fu Acob, Cheryl, RN RN ca1 Baxter, Heather RN Corrections: (The following items were deleted from the chart) 05/01 20:17 18:21 05/01/2020 18:21 Discharged to Home. Impression: Scrotal Cellulitis; UTI. fu Condition is Stable. Forms are Medication Reconciliation Form, Thank You Letter, Antibiotic Education, Prescription Opioid Use. Follow up: Private Physician; When: 2 - 3 days; Reason: Recheck today's complaints, Continuance of care, Re-evaluation by your physician. meghana
--- NOTE | 2020-05-01 18:22 | ER ---
Nurse's Notes [facility] Name: Emery De La Rosa Age: 24 yrs Sex: Male : 1995 Arrival Date: 05/01/2020 Time: 13:39 Bed 24 Private MD: Diagnosis: Scrotal Cellulitis;UTI Presentation: 05/01 13:42 Chief complaint: Patient states: left swollen testicle noticed it today. Coronavirus sv screen: Client denies travel out of the [place] in the last 14 days. At this time, the client does not indicate any symptoms associated with coronavirus-19. Ebola Screen: No symptoms or risks identified at this time. Risk Assessment: Do you want to hurt yourself or someone else? Patient reports no desire to harm self or others. Onset of symptoms was May 01, 2020. 13:42 Method Of Arrival: Wheelchair sv 13:42 Acuity: MICAH 2 sv 13:43 Initial Sepsis Screen: Does the patient meet any 2 criteria? HR > 90 bpm. No. Patient's sv initial sepsis screen is negative. Does the patient have a suspected source of infection? No. Patient's initial sepsis screen is negative. Historical: - Allergies: 13:43 Latex, Natural Rubber; sv - PMHx: 13:43 Hydrocephalus; Shunt; spina bifida; sv - PSHx: 13:43 Multiple back surgeries; sv - Immunization history:: Flu vaccine is not up to date. - Social history:: Smoking status: Patient denies any tobacco usage or history of. Screenin:12 Abuse screen: Denies threats or abuse. Denies injuries from another. Nutritional ca1 screening: No deficits noted. Tuberculosis screening: No symptoms or risk factors identified. Fall Risk Ambulatory Aid- Crutches/Cane/Walker (15 pts). Assessment: 14:12 General: Appears in no apparent distress. uncomfortable, Behavior is calm, cooperative, ca1 appropriate for age. Pain: Complains of pain in left testicle Pain currently is 10 out of 10 on a pain scale. Pain began 0400 today Is continuous. Neuro: Level of Consciousness is awake, alert, obeys commands, Oriented to person, place, time, situation. : Genitalia appear normal on scrotum reports tenderness upon palpation Denies burning with urination, urinary frequency, urgency. Derm: Skin is intact, is healthy with good turgor, Skin is pink, warm \T\ dry. Musculoskeletal: Circulation, motion, and sensation intact. Capillary refill < 3 seconds. 15:15 Reassessment: Patient appears in no apparent distress at this time. Patient and/or ca1 family updated on plan of care and expected duration. Pain level reassessed. Patient is alert, oriented x 3, equal unlabored respirations, skin warm/dry/pink. 16:21 Reassessment: Patient appears in no apparent distress at this time. Patient and/or ca1 family updated on plan of care and expected duration. Pain level reassessed. Patient is alert, oriented x 3, equal unlabored respirations, skin warm/dry/pink. 17:20 Reassessment: Patient appears in no apparent distress at this time. Patient and/or ca1 family updated on plan of care and expected duration. Pain level reassessed. Patient is alert, oriented x 3, equal unlabored respirations, skin warm/dry/pink. 18:26 Reassessment: Patient appears in no apparent distress at this time. Patient and/or ca1 family updated on plan of care and expected duration. Pain level reassessed. Patient is alert, oriented x 3, equal unlabored respirations, skin warm/dry/pink. 18:30 Reassessment: To be discharged once IVF is completed. ca1 Vital Signs: 13:43 BP 131 / 81; Pulse 125; Resp 20; Temp 98.7; Pulse Ox 99% ; sv 14:12 BP 148 / 57; Pulse 135; Resp 17 S; Pulse Ox 97% on R/A; ca1 15:15 BP 139 / 73; Pulse 135; Resp 17; Pulse Ox 95% on R/A; ca1 17:07 BP 121 / 63; Pulse 121; Resp 17 S; Pulse Ox 97% on R/A; ca1 18:09 BP 120 / 73; Pulse 121; Resp 18 S; Pulse Ox 98% on R/A; ca1 18:26 BP 133 / 82; Pulse 117; Resp 18 S; Pulse Ox 97% on R/A; ca1 ED Course: 13:39 Patient arrived in ED. ds1 13:42 Arm band placed on. sv 13:43 Triage completed. sv 14:12 Patient has correct armband on for positive identification. Placed in gown. Bed in low ca1 position. Call light in reach. Side rails up X2. Pulse ox on. NIBP on. Warm blanket given. 14:15 Man Baltazar PA is PHCP. [facility] 14:15 Cb Arnold MD is Attending Physician. [facility] 14:23 Marlyn Gore, ALANA is Primary Nurse. ca1 14:38 Initial lab(s) drawn, by ED staff, sent to lab. Inserted saline lock: 20 gauge in right ca1 wrist, using aseptic technique. ,using aseptic technique. by ALANA Vallejo Blood collected. 15:35 US Scrotum Testicles In Process Unspecified. EDMS 16:44 CT Abd/Pelvis - IV Contrast Only In Process Unspecified. EDMS 17:02 First set of blood cultures drawn by me. ca1 17:06 Urine Microscopic Only Sent. ca1 17:06 Urine Culture Sent. ca1 17:06 Blood Culture Adult (2) Sent. ca1 17:06 Lactate Sent. ca1 17:06 Procalcitonin Sent. ca1 17:40 Second set of blood cultures drawn by me. jp3 20:16 No provider procedures requiring assistance completed. IV discontinued, bleeding fu controlled, Pressure dressing applied. Administered Medications: 14:39 Drug: Zofran (Ondansetron) 4 mg Route: IVP; Site: right wrist; ca1 15:22 Follow up: Response: No adverse reaction hb 18:31 Follow up: Response: No adverse reaction; Nausea is decreased ca1 14:41 Drug: fentaNYL (PF) 50 mcg {Note: rass 0.} Route: IVP; Site: right wrist; ca1 15:22 Follow up: Response: No adverse reaction hb 15:30 Follow up: Response: No adverse reaction; Pain is decreased; RASS: Alert and Calm (0) ca1 17:00 Drug: NS 0.9% 1000 ml Route: IV; Rate: 1 bolus; Site: right wrist; ca1 19:54 Follow up: IV Intake: 1000ml fu 18:19 Drug: Rocephin 1 grams Route: IV; Rate: calculated rate; Site: right wrist; ca1 18:30 Drug: TORadol 30 mg Route: IVP; Site: right wrist; ca1 Intake: 19:54 IV: 1000ml; Total: 1000ml. fu Outcome: 18:21 Discharge ordered by . [facility] 20:16 Discharged to home via wheelchair, with family. fu 20:16 Condition: stable 20:16 Discharge instructions given to patient, family, Instructed on discharge instructions, follow up and referral plans. Demonstrated understanding of instructions, follow-up care, Prescriptions given X 2. 20:17 Patient left the ED. Addendum: 05/05/2020 07:37 Addendum: Culture Results: Positive urine culture. No further action required. Bacteria h b sensitive to prescribed antibiotic. Signatures: Dispatcher [employer] Keyonna Andrews RN RN sv Mickail, Joel, PA PA jmm Sanford, Demi ds1 Genevieve Puente RN ALANA Dameon Loza RN RN Blaine Houston jp3 Marlyn Gore RN RN ca1 Corrections: (The following items were deleted from the chart) 05/01 13:57 13:42 Acuity: MICAH 3 [facility]
[2020-05-01] MEDS ORDERED: CEFTRIAXONE/SWI 1gm 1 GM/10 ML SYR ONE (18:31)
[2020-05-01] MEDS ORDERED: KETOROLAC 30 MG/ML INJ ONE (18:41)
[2020-05-01 20:38] VITALS: TEMP 98.7
[2020-05-01 20:49] VITALS: BP 133/82; O2SAT 97
== END 2020-05-01 20:17 | disposition home or self-care (01) ==
LOC: ER 13:39
DX: N49.2 Inflammatory disorders of scrotum (principal); N39.0 Urinary tract infection, site not specified; Q05.9 Spina bifida, unspecified; Z91.040 Latex allergy status; Z91.048 Other nonmedicinal substance allergy status
CPT/HCPCS: 87040 ×2; 87088; 85025; 87086; 36415; 83605; 87077; 87186; 81003; 80053; 84145; 74177; 76870; 96375; 96374; 99284; Q9967; J3010; J0696; J7030; J2405

== ENCOUNTER 2021-05-21 13:35 | Inpatient (IN) | payer OTHER ==
[2021-05-21 15:25] LABS: Absolute Lymphocytes (CBC) 2.1 K/uL (0.7-4.9); Basophils % 0.2 % (0-1.3); Hematocrit 44.9 % (39.6-49.0); Lymphocytes % 15.5 % (15.3-44.8); MPV 7.4 fL (7.6-11.3); RBC Red Blood Cell Count 5.07 M/uL (4.33-5.43)
[2021-05-21 15:30] LABS: Protime INR 1.09
[2021-05-21 15:45] LABS: ALT/SGPT 35 U/L (12-78); AST/SGOT 13 U/L (15-37); Albumin 3.9 g/dL (3.4-5.0); Alkaline Phosphatase 83 U/L (45-117); Amylase 81 U/L (25-115); BUN Blood Urea Nitrogen 17 mg/dL (7-18); Bicarbonate 29 mmol/L (21-32); Bilirubin Direct < 0.1 mg/dL (0-0.2); Bilirubin Total 0.4 mg/dL (0.2-1.0); Creatine Phosphokinase 63 U/L (39-308); Glucose Level 96 mg/dL (74-106); Lipase 85 U/L (73-393); Potassium 3.8 mmol/L (3.5-5.1); Protein, Total 7.9 g/dL (6.4-8.2); Sodium Level 141 mmol/L (136-145); Troponin (Emerg Dept Use Only) < 0.02 ng/mL (0.0-0.045)
[2021-05-21 15:45] LABS: Urine Blood Negative (Negative); Urine Glucose Negative (Negative); Urine Protein Negative (Negative)
[2021-05-21 15:47] LABS: CKMB Creatine Kinase MB < 1.0 ng/mL (1.0-3.6)
--- NOTE | 2021-05-21 15:51 | RAD REPORT ---
EXAM DESCRIPTION: RAD - Chest Single View - 05/21/2021 3:30 pm CLINICAL HISTORY: Bilateral lower extremity swelling COMPARISON: No comparisons FINDINGS: Lines: None. Lungs: No evidence of edema or pneumonia. Pleural: No significant pleural effusions or pneumothorax. Cardiac: The heart size is within normal limits. Bones: No acute fractures. 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 IMPRESSION: No acute cardiopulmonary disease.
[2021-05-21 16:03] LABS: Urine Bacteria LOADED /HPF (NONE SEEN); Urine RBC <5 /HPF (NONE SEEN)
[2021-05-21] MEDS ORDERED: CEFTRIAXONE 1000 MG/VIAL ONE (16:32)
[2021-05-21] MEDS ORDERED: NA CHLORIDE 0.9% 50 ML ONE (16:33)
--- NOTE | 2021-05-21 16:48 | RAD REPORT ---
EXAM DESCRIPTION: RAD - Foot Left 3 View - 05/21/2021 4:35 pm CLINICAL HISTORY: SWELLING COMPARISON: No comparisons FINDINGS: No acute fracture. No malalignment. No significant focal degenerative changes. Deformity o f the calcaneus is presumably developmental. There is swelling along the dorsal aspect of the midfoot . IMPRESSION: No acute osseous abnormality involving the left foot. Calcaneal deformity is presumably developmental.
[2021-05-21] MEDS ORDERED: ONDANSETRON 4 MG/2 ML VIAL IV PRN (16:53)
[2021-05-21] MEDS ORDERED: ACETAMINOPHEN 500 MG TAB PO PRN (16:53)
[2021-05-21] MEDS ORDERED: HYDROMORPHONE HCL 1 MG/ML INJ IV PRN (16:53)
[2021-05-21] MEDS ORDERED: VANCOMYCIN 1.5 GM in NA CHLORIDE 0.9% 500 ML IVPB ONE (17:00)
[2021-05-21] MEDS ORDERED: CEFTRIAXONE 1,000 MG in NA CHLORIDE 0.9% 50 ML IVPB ONE (17:00)
[2021-05-21] MEDS: Levofloxacin500mg IV 500 MG/100 ML BAG IV SCH (17:00)
[2021-05-21] MEDS ORDERED: VANCOMYCIN/NS 1 gm 1 GM/250 ML BAG IVPB SCH (17:00)
[2021-05-21] MEDS ORDERED: HYDROCODONE/CHLORPHEN 5 ML/OSYR ONE (17:29)
--- NOTE | 2021-05-21 17:50 | P.HP ---
Certification for Inpatient Patient admitted to: Inpatient With expected LOS: >2 Midnights Patient will require the following post-hospital care: None Practitioner: I am a practitioner with admitting privileges, knowledge of patient current condition, hospital course, and medical plan of care. Services: Services provided to patient in accordance with Admission requirements found in Title 42 Section 412.3 of the Code of Federal Regulations Patient History Date of Service: 05/21/21 Reason for admission: Cellulitis of the left foot and left lower extremity History of Present Illness: Patient is a 25-year-old gentleman who came to the hospital with cellulitis of the left foot. According to the patient the cellulitis appeared suddenly. Patient's left foot was significantly swollen and it extended up to the left lower extremity. Decision was made to bring patient to the hospital for further evaluation. Patient is a paraplegic from spina bifida. Patient will be admitted to the hospital for further evaluation. Allergies Latex, Natural Rubber Allergy (Mild, Verified 06/16/18 08:02) Unknown Home Medications: Benzonatate [Tessalon Perle*] 100 mg PO BID 05/22/21 - Past Medical/Surgical History Diabetic: No -: Spina Bifida -: toe amputation -: Pressure ulcer Stage 3 bilateral great toes -: LEAF BLENDER shunt -: Spinal sx r/t spina bifida - Family History Father Medical History: Other (see notes) Notes: blood clots - Social History Alcohol use: Yes Review of Systems 10-point ROS is otherwise unremarkable Physical Examination - Vital Signs Temperature: 98 F Blood Pressure: 130/70 Pulse: 80 Respirations: 18 Pulse Ox (%): 96 - Physical Exam General: Alert, In no apparent distress, Oriented x3 HEENT: Atraumatic, PERRLA, Mucous membr. moist/pink, EOMI, Sclerae nonicteric Neck: Supple, 2+ carotid pulse no bruit, No LAD, Without JVD or thyroid abnormality Respiratory: Clear to auscultation bilaterally, Normal air movement Cardiovascular: Regular rate/rhythm, Normal S1 S2 Gastrointestinal: Normal bowel sounds, Soft and benign, Non-distended, No te nderness Musculoskeletal: No clubbing, Swelling, Erythema, Tenderness Integumentary: Tenderness/swelling, Erythema, Warmth Neurological: Sensation intact, Cranial nerves 3-12 intact, Abnormal gait, Abnormal strength - Studies Laboratory Data (last 24 hrs) 05/21/21 15:09: PT 12.5, INR 1.09, APTT 32.2 05/21/21 15:09: WBC 13.60 H, Hgb 15.3, Hct 44.9, Plt Count 356 05/21/21 15:09: Sodium 141, Potassium 3.8, BUN 17, Creatinine 0.84, Glucose 96, Total Bilirubin 0.4, AST 13 L, ALT 35, Alkaline Phosphatase 83, Amylase 81, Lipase 85 Assessment & Plan - Problems (Diagnosis) (1) Cellulitis of left foot Current Visit: Yes Status: Acute (2) Left leg cellulitis Current Visit: Yes Status: Acute (3) Paraplegia Current Visit: No Status: Chronic (4) Spina bifida Current Visit: No Status: Chronic (5) LEAF BLENDER (ventriculoperitoneal) shunt status Current Visit: No Status: Chronic - Plan 1. Continue with IV antibiotic 2. Continue with local wound care 3. Infectious disease consultation 4. Hep-Lock IV 5. Monitor CBC 6. Strict blood sugar monitoring 7. Pain control 8. GI and DVT prophylaxis Discharge Plan: Home Plan to discharge in: Greater than 2 days - Advance Directives Does patient have a Living Will: No Does patient have a Durable POA for Healthcare: No - Code Status/Comfort Care Code Status Assessed: Yes Code Status: Full Code Critical Care: No Time Spent Managing PTS Care (In Minutes): 45
--- NOTE | 2021-05-21 19:15 | EDPHYS ---
Physician Documentation [facility] Name: Emery De La Rosa Age: 25 yrs Sex: Male : 1995 Arrival Date: 05/21/2021 Time: 13:38 Bed 5 Private MD: Heidy Amaro ED Physician Adama Mireles HPI: 05/21 19:06 This 25 yrs old Male presents to ER via Wheelchair with complaints of Feet Swelling. mh7 19:06 The patient presents with swelling. The complaints affect the left foot. Context: The mh7 problem was sustained at an unknown location, resulted from an unknown cause, Mechanism of Injury: Unknown the patient is not able to bear weight, the patient is not able to ambulate, Wheelchair bound. Onset: The symptoms/episode began/occurred this morning, today. Modifying factors: The symptoms are alleviated by nothing, the symptoms are aggravated by nothing. Associated signs and symptoms: Pertinent positives: swelling, warmth, Pertinent negatives: calf tenderness, fever, nausea, numbness, rash, tingling, vomiting, weakness. Severity of symptoms: At their worst the symptoms were moderate, earlier today, in the emergency department the symptoms are unchanged. Patient complains of left foot swelling that started this morning. He has also noticed redness and increased warmth to the foot. Additionally he complains of intermittent cough for 2 weeks. He denies any fever, headache, chest pain, abdominal pain, shortness of breath, nausea, vomiting, diarrhea, numbness/tingling, or weakness.. Historical: - Allergies: 14:10 Latex, Natural Rubber; tw2 - Home Meds: 14:10 Tessalon Perles 100 mg Oral cap 1 cap 3 times per day [Active]; tw2 - PMHx: 14:10 Hydrocephalus; Shunt; spina bifida; tw2 - PSHx: 20:07 back surgery; bilateral hips; bilateral ankles; df1 - Immunization history:: Client reports having NOT received the Covid vaccine. - Social history:: Smoking status: Patient denies any tobacco usage or history of. Patient uses alcohol, occasionally. ROS: 19:06 Constitutional: Negative for fever, chills, and weight loss, Eyes: Negative for injury, mh7 pain, redness, and discharge, ENT: Negative for injury, pain, and discharge, Neck: Negative for injury, pain, and swelling, Cardiovascular: Negative for chest pain, palpitations, and edema, Abdomen/GI: Negative for abdominal pain, nausea, vomiting, diarrhea, and constipation, Back: Negative for injury and pain, : Negative for injury, bleeding, discharge, and swelling, Neuro: Negative for headache, weakness, numbness, tingling, and seizure, Psych: Negative for depression, anxiety, suicide ideation, homicidal ideation, and hallucinations, Allergy/Immunology: Negative for hives, rash, and allergies, Endocrine: Negative for neck swelling, polydipsia, polyuria, polyphagia, and marked weight changes, Hematologic/Lymphatic: Negative for swollen nodes, abnormal bleeding, and unusual bruising. Exam: 19:06 Constitutional: This is a well developed, well nourished patient who is awake, alert, mh7 and in no acute distress. Head/Face: Normocephalic, atraumatic. Eyes: Pupils equal round and reactive to light, extra-ocular motions intact. Lids and lashes normal. Conjunctiva and sclera are non-icteric and not injected. Cornea within normal limits. Periorbital areas with no swelling, redness, or edema. Neck: Trachea midline, no thyromegaly or masses palpated, and no cervical lymphadenopathy. Supple, full range of motion without nuchal rigidity, or vertebral point tenderness. No Meningismus. Chest/axilla: Normal chest wall appearance and motion. Nontender with no deformity. No lesions are appreciated. 19:06 Respiratory: Lungs have equal breath sounds bilaterally, clear to auscultation and percussion. No rales, rhonchi or wheezes noted. No increased work of breathing, no retractions or nasal flaring. Abdomen/GI: Soft, non-tender, with normal bowel sounds. No distension or tympany. No guarding or rebound. No evidence of tenderness throughout. Back: No spinal tenderness. No costovertebral tenderness. Full range of motion. 19:06 Psych: Awake, alert, with orientation to person, place and time. Behavior, mood, and affect are within normal limits. 19:06 Cardiovascular: Rate: tachycardic, Rhythm: regular, Pulses: no pulse deficits are appreciated, Heart sounds: normal, normal S1and S2, Edema: is not appreciated, JVD: is not appreciated. 19:06 Musculoskeletal/extremity: Extremities: noted in the left foot dorsal aspect : erythema, swelling, tenderness, ROM: no acute changes, Circulation is intact in all extremities. Sensation intact. Compartment Syndrome exam of affected extremity: is normal. no pain, no numbness, no tingling, no sensation deficit, no palor, no weak pulses, Joints: All joints appear normal with full range of motion. Weight bearing: is unable to bear weight, Tendon exam: specific tendon testing normal through active and passive range of motion 19:06 Skin: cellulitis, that is moderate, well demarcated, on the left foot dorsal aspect. 19:06 Neuro: Orientation: is normal, Mentation: is normal, Memory: is normal, Cranial nerves: grossly normal, Cerebellar function: is grossly normal, Motor: no acute changes, Sensation: is normal, Gait: Wheelchair-bound . seizure activity, is not displayed by the patient, Abnormal movements: there are no abnormal movements. Vital Signs: 14:07 BP 129 / 92; Pulse 113; Resp 18; Temp 98.2(O); Pulse Ox 98% on R/A; tw2 15:19 BP 133 / 83; Pulse 100; Resp 18; Pulse Ox 96% on R/A; tw2 16:19 BP 130 / 91; Pulse 98; Resp 16; Pulse Ox 98% on R/A; tw2 17:19 Weight 88.45 kg (R); tw2 17:25 BP 126 / 83; Pulse 100; Resp 19; Pulse Ox 95% on R/A; tw2 19:07 BP 135 / 88; Pulse 113; Resp 18; Pulse Ox 95% on R/A; tw2 20:11 BP 140 / 84; Pulse 99; Resp 18; Pulse Ox 96% on R/A; df1 MDM: 19:12 Differential diagnosis: fracture, sprain, arthritis, cellulitis, Osteomyelitis, mh7 infectious process, cough, pneumonia. Data reviewed: vital signs, nurses notes, lab test result(s), CBC, electrolytes, radiologic studies, plain films. Data interpreted: Pulse oximetry: on room air is 95 %. Interpretation: normal. Counseling: I had a detailed discussion with the patient and/or guardian regarding: the historical points, exam findings, and any diagnostic results supporting the discharge/admit diagnosis, lab results, radiology results, the need for further work-up and treatment in the hospital. Response to treatment: the patient's symptoms have mildly improved after treatment. 19:14 Patient medically screened. mh7 05/21 14:43 Order name: Amylase, Serum [facility] 05/21 14:43 Order name: Basic Metabolic Panel [facility] 05/21 14:43 Order name: Blood Culture Adult (2) [facility] 05/21 14:43 Order name: CBC with Diff; Complete Time: 16:04 [facility] 05/21 14:43 Order name: CPK; Complete Time: 16:04 [facility] 05/21 14:43 Order name: Ckmb; Complete Time: 16:04 [facility] 05/21 14:43 Order name: LFT's; Complete Time: 16:04 [facility] 05/21 14:43 Order name: Lactate; Complete Time: 16:04 [facility] 05/21 14:43 Order name: Lipase; Complete Time: 16:04 [facility] 05/21 14:43 Order name: Procalcitonin; Complete Time: 17:42 [facility] 05/21 14:43 Order name: Protime (+inr); Complete Time: 16:04 [facility] 05/21 14:43 Order name: Ptt, Activated; Complete Time: 16:04 [facility] 05/21 14:43 Order name: Troponin (emerg Dept Use Only); Complete Time: 16:04 [facility] 05/21 14:43 Order name: Urine Microscopic Only; Complete Time: 16:04 [facility] 05/21 14:43 Order name: Chest Single View XRAY; Complete Time: 16:04 [facility] 05/21 14:43 Order name: Amylase; Complete Time: 16:04 [facility] 05/21 14:43 Order name: Basic Metabolic Panel; Complete Time: 16:04 [facility] 05/21 14:43 Order name: Blood Culture [facility] 05/21 15:26 Order name: Glucose, Ancillary Testing [facility] 05/21 15:45 Order name: Urine Dipstick-Ancillary [facility] 05/21 16:03 Order name: Urine Culture [facility] 05/21 16:05 Order name: Foot Left 3 View XRAY; Complete Time: 17:42 [facility] 05/21 16:11 Order name: SARS-COV-2 RT PCR (Document "Date of Onset" if Symptomatic); Complete Time: iw 18:07 05/21 16:59 Order name: Basic Metabolic Panel [facility] 05/21 16:59 Order name: Basic Metabolic Panel [facility] 05/21 16:59 Order name: CBC with Automated Diff EDMS 05/21 16:59 Order name: CBC with Automated Diff EDMS 05/21 14:43 Order name: Accucheck; Complete Time: 15:16 kdr 05/21 14:43 Order name: EKG - Nurse/Tech; Complete Time: 15:53 kdr 05/21 14:43 Order name: IV Saline Lock - Large Bore; Complete Time: 15:16 kdr 05/21 14:43 Order name: Labs collected and sent; Complete Time: 15:16 kdr 05/21 14:43 Order name: O2 Per Protocol; Complete Time: 15:16 kdr 05/21 14:43 Order name: O2 Sat Monitoring; Complete Time: 15:17 kdr 05/21 14:43 Order name: Urine Dipstick-Ancillary (obtain specimen); Complete Time: 15:45 kdr 05/21 15:17 Order name: Straight Cath - Urine; Complete Time: 15:45 tw2 05/21 16:59 Order name: CONS Physician Consult EDMS 05/21 16:59 Order name: 60g Consistent Carbohydrate (ADA 1800/1999) EDMS Administered Medications: 16:41 Drug: Rocephin - (cefTRIAXone) 1 grams Route: IVPB; Infused Over: 30 mins; Site: right tw2 antecubital; 17:12 Follow up: Response: No adverse reaction; IV Status: Completed infusion; IV Intake: [id number] 17:19 Drug: vancoMYCIN 1.5 grams Route: IVPB; Rate: calculated rate; Site: right antecubital; tw2 17:33 Drug: Tussionex Pennkinetic ER (chlorpheniramine-hydrocodone) Suspension 5 ml Route: PO;tw2 19:00 Follow up: Response: No adverse reaction; No change in condition tw2 Disposition Summary: 05/21/21 19:14 Hospitalization Ordered Hospitalization Status: Inpatient Admission [facility] Provider: Derick Driver Location: Telemetry/MedSurg (Inpatient) [facility] Condition: Stable [facility] Problem: [facility] Symptoms: have improved [facility] Bed/Room Type: Standard [facility] Room Assignment: 228(05/21/21 20:02) eb1 Diagnosis - Cellulitis, Left Foot [facility] Discharge Instructions: - Discharge Summary Sheet 2 Forms: - SBAR form tw2 - Medication Reconciliation Form [facility] Signatures: Dispatcher [employer] Cb Santiago MD MD kdr Gil, William, POLITICAL RESEARCH SCIENTIST-C POLITICAL RESEARCH SCIENTIST-Cla1 Jie Rutherford RN RN tw2 Ju Hercules RN RN eb1 Adama Mireles MD MD 7 Ashley Maldonado df1 Corrections: (The following items were deleted from the chart) 15:16 14:43 Cardiac monitoring ordered. [facility] tw2 20:02 19:14 Castro 1
--- NOTE | 2021-05-21 19:15 | ER ---
Nurse's Notes [facility] Name: Emery De La Rosa Age: 25 yrs Sex: Male : 1995 Arrival Date: 05/21/2021 Time: 13:38 Bed 5 Private MD: Heidy Amaro Diagnosis: Cellulitis, Left Foot Presentation: 05/21 14:07 Chief complaint: Patient states: I have been going to [facility] for a wound on top of my LEFT tw2 foot. I normally go on Mondays but I havent been in 2 weeks because since that cold weather change I have had a cough and some mucous. But I clean and change my dressing every day and yesterday it was not like this. This morning I woke up and it is hot to the touch and red. also swollen. denies fever. Coronavirus screen: At this time, the client does not indicate any symptoms associated with coronavirus-19. Ebola Screen: Patient denies travel to an Ebola-affected area in the 21 days before illness onset. Initial Sepsis Screen: Does the patient meet any 2 criteria? HR > 90 bpm. No. Patient's initial sepsis screen is negative. Does the patient have a suspected source of infection? Yes: Skin breakdown/wound. Risk Assessment: Do you want to hurt yourself or someone else? Patient reports no desire to harm self or others. Onset of symptoms was May 21, 2021. 14:07 Method Of Arrival: Wheelchair tw2 14:07 Acuity: MICAH 3 tw2 Triage Assessment: 14:10 General: Appears in no apparent distress. Behavior is calm, cooperative, appropriate tw2 for age. Pain: Denies pain. Neuro: Level of Consciousness is awake, alert, obeys commands, Oriented to person, place, time, situation. Respiratory: Airway is patent Respiratory effort is even, unlabored, Respiratory pattern is regular, symmetrical. Musculoskeletal: Circulation, motion, and sensation intact. Range of motion: intact in all extremities. 15:17 Derm: Reports "wound on top of LEFT foot that's thompson near healed." scab noted to dorsum tw2 on left foot with redness and swelling around the area. Historical: - Allergies: 14:10 Latex, Natural Rubber; tw2 - Home Meds: 14:10 Tessalon Perles 100 mg Oral cap 1 cap 3 times per day [Active]; tw2 - PMHx: 14:10 Hydrocephalus; Shunt; spina bifida; tw2 - PSHx: 20:07 back surgery; bilateral hips; bilateral ankles; df1 - Immunization history:: Client reports having NOT received the Covid vaccine. - Social history:: Smoking status: Patient denies any tobacco usage or history of. Patient uses alcohol, occasionally. Screenin:00 Abuse screen: Denies threats or abuse. Nutritional screening: No deficits noted. tw2 Tuberculosis screening: No symptoms or risk factors identified. Fall Risk Secondary diagnosis (15 points) impaired mobility, Ambulatory Aid-. Assessment: 14:11 Reassessment: see triage assessment. tw2 15:19 Respiratory: Reports cough that is non-productive, hacking, since "2 weeks since the tw2 weather changed that hasnt gone away with those pearls the doctor prescribed me.". 16:25 Reassessment: Patient appears in no apparent distress at this time. No changes from tw2 previously documented assessment. Patient and/or family updated on plan of care and expected duration. Pain level reassessed. Patient is alert, oriented x 3, equal unlabored respirations, skin warm/dry/pink. 16:26 Reassessment: xray at bedside at this time. tw2 17:25 Reassessment: Patient appears in no apparent distress at this time. Patient and/or tw2 family updated on plan of care and expected duration. Pain level reassessed. Patient is alert, oriented x 3, equal unlabored respirations, skin warm/dry/pink. pt states "can i get something for this cough". provider notified. 17:39 Reassessment: pt given water, gatoraid, sandwhich and crackers at this time, updated as tw2 to poc. 17:51 Reassessment: pt eating at this time. nad. will move to ER bed 5 once he finishes his tw2 meal. 19:07 Reassessment: Patient appears in no apparent distress at this time. No changes from tw2 previously documented assessment. Patient and/or family updated on plan of care and expected duration. Pain level reassessed. Patient is alert, oriented x 3, equal unlabored respirations, skin warm/dry/pink. Vital Signs: 14:07 BP 129 / 92; Pulse 113; Resp 18; Temp 98.2(O); Pulse Ox 98% on R/A; tw2 15:19 BP 133 / 83; Pulse 100; Resp 18; Pulse Ox 96% on R/A; tw2 16:19 BP 130 / 91; Pulse 98; Resp 16; Pulse Ox 98% on R/A; tw2 17:19 Weight 88.45 kg (R); tw2 17:25 BP 126 / 83; Pulse 100; Resp 19; Pulse Ox 95% on R/A; tw2 19:07 BP 135 / 88; Pulse 113; Resp 18; Pulse Ox 95% on R/A; tw2 20:11 BP 140 / 84; Pulse 99; Resp 18; Pulse Ox 96% on R/A; df1 ED Course: 13:38 Patient arrived in ED. as 13:38 Heidy Amaro MD is Private Physician. as 13:58 Bed in low position. Call light in reach. Pulse ox on. NIBP on. tw2 14:00 Jie Rutherford RN is Primary Nurse. tw2 14:10 Triage completed. tw2 14:11 Arm band placed on. tw2 14:42 Cb Arnold MD is Attending Physician. kdr 15:09 Inserted saline lock: 20 gauge in right antecubital area, using aseptic technique. tw2 Blood collected. 15:30 Chest Single View XRAY In Process Unspecified. EDMS 15:40 Straight cath inserted, using sterile technique, 18 Fr. Specimen obtained. ALANA Fowler tw2 served as supervisor airplane flight attendant Returned andriy urine. Patient tolerated well. 16:20 Awaiting: medication from pharmacy at this time. tw2 16:35 Foot Left 3 View XRAY In Process Unspecified. EDMS 18:54 Attending Physician role handed off by Cb Arnold MD 7 18:54 Adama Mireles MD is Attending Physician. mh7 19:07 Report given to ALANA Gerber and ALANA Ramirez. tw2 19:14 Derick Driver MD is Hospitalizing Provider. mh7 20:11 No provider procedures requiring assistance completed. df1 20:17 Patient admitted, IV remains in place. df1 Administered Medications: 16:41 Drug: Rocephin - (cefTRIAXone) 1 grams Route: IVPB; Infused Over: 30 mins; Site: right tw2 antecubital; 17:12 Follow up: Response: No adverse reaction; IV Status: Completed infusion; IV Intake: [id number] 17:19 Drug: vancoMYCIN 1.5 grams Route: IVPB; Rate: calculated rate; Site: right antecubital; tw2 17:33 Drug: Tussionex Pennkinetic ER (chlorpheniramine-hydrocodone) Suspension 5 ml Route: PO;tw2 19:00 Follow up: Response: No adverse reaction; No change in condition tw2 Intake: 17:12 IV: 50ml; Total: 50ml. tw2 Outcome: 19:14 Decision to Hospitalize by Provider. [facility] 21:03 Patient left the ED. bb Signatures: Dispatcher [employer] EDMS Cb Arnold MD MD kdr Martinez, Amelia as Ballard, Brenda, RN RN bb Jie Rutherford RN RN 2 Adama Mireles MD MD 7 Ashley Maldonado df1 Corrections: (The following items were deleted from the chart) 15:18 14:10 Musculoskeletal: Circulation, motion, and sensation intact. Range of motion: tw2 intact in all extremities, tw2 15:53 15:19 Pulse 100bpm; Pulse Ox 96% RA; tw2 tw2 17:53 14:07 Chief complaint: Patient states: i have been going to [facility] for a wound on top of tw2 my LEFT foot. I normally go on Mondays but I havent been in 2 weeks because since that cold weather change I have had a cough and some mucous. But i clean and change my dressing every day and yesterday it was not like this. This morning I woke up and it is hot to the touch and red. denies fevers tw2
[2021-05-21 21:42] VITALS: BMI 29.8
[2021-05-21] MEDS: NA CHLORIDE 0.9% 1,000 ML IV SCH (22:46)
[2021-05-22] MEDS: BENZONATATE 100 MG CAP PO PRN ×2 (00:51→09:21)
[2021-05-22] MEDS ORDERED: Levofloxacin500mg IV 500 MG/100 ML BAG IV ONE (01:00)
[2021-05-22 05:55] LABS: Absolute Lymphocytes (CBC) 2.4 K/uL (0.7-4.9); Basophils % 0.6 % (0-1.3); Hematocrit 39.9 % (39.6-49.0); Lymphocytes % 31.6 % (15.3-44.8); MPV 7.3 fL (7.6-11.3); RBC Red Blood Cell Count 4.48 M/uL (4.33-5.43)
[2021-05-22] MEDS ORDERED: VANCOMYCIN 1.5 GM in NA CHLORIDE 0.9% 500 ML IVPB SCH (06:00)
[2021-05-22 06:14] LABS: BUN Blood Urea Nitrogen 12 mg/dL (7-18); Bicarbonate 29 mmol/L (21-32); Glucose Level 107 mg/dL (74-106); Potassium 3.7 mmol/L (3.5-5.1); Sodium Level 141 mmol/L (136-145)
[2021-05-22 09:54] LABS: Blood Morphology Comment NOT SEEN (NOT SEEN); Platelet Estimate ADEQ
--- NOTE | 2021-05-22 10:27 | P.CNS ---
Date of Consult: 05/22/21 History of Present Illness: The patient is a 25-year-old male with a past medical history of spina bifida with paraplegia who presented to the emergency department secondary to left lower extremity redness and swelling. Patient states that his symptoms began the morning prior to being admitted. He denies any trauma to the area. X-ray negative for fracture/osteomyelitis. MRI pending. Of note patient has wound to his the left malleolus which he states has been present since January. Wound is healing, and he follows up regularly with the wound Care Center. Patient empirically place in vancomycin and Levaquin. Patient currently denies nausea/vomiting/diarrhea/shortness breath/chest pain. Allergies Latex, Natural Rubber Allergy (Mild, Verified 06/16/18 08:02) Unknown Home Medications: Amox/Clavulanate [Augmentin 875-125 Tab] 1 each PO BID 06/13/18 - Past Medical/Surgical History Diabetic: No -: Spina Bifida -: toe amputation -: Pressure ulcer Stage 3 bilateral great toes -: [employer] shunt -: Spinal sx r/t spina bifida - Family History Father Medical History: Other (see notes) Notes: blood clots - Social History Smoking Status: Never smoker Alcohol use: Yes CD- Drugs: No Caffeine use: No Place of Residence: Home Review of Systems 10-point ROS is otherwise unremarkable Physical Examination Temp Pulse Resp BP Pulse Ox 97.2 F 87 16 158/88 H 98 05/22/21 08:00 05/22/21 08:00 05/22/21 08:00 05/22/21 08:00 05/22/21 08:00 General: Alert, In no apparent distress, Oriented x3 HEENT: Atraumatic, Normocephalic Neck: Supple, JVD not distended Respiratory: Clear to auscultation bilaterally, Normal air movement Cardiovascular: Normal pulses, Regular rate/rhythm Capillary refill: <2 Seconds Gastrointestinal: Normal bowel sounds Musculoskeletal: Other (Paraplegia with lower extremity muscle wasting) Integumentary: Other ( Lower extremity erythema and swelling 1 to 2+. Chronic healing pulse to left malleolus. Lower extremity muscle wasting) Neurological: Other (Paraplegia) Laboratory Data (last 24 hrs) 05/21/21 15:09: PT 12.5, INR 1.09, APTT 32.2 05/21/21 15:09: WBC 13.60 H, Hgb 15.3, Hct 44.9, Plt Count 356 05/21/21 15:09: Sodium 141, Potassium 3.8, BUN 17, Creatinine 0.84, Glucose 96, Total Bilirubin 0.4, AST 13 L, ALT 35, Alkaline Phosphatase 83, Amylase 81, Lipase 85 Conclusions/Impression: Antibiotics: Vancomycin Start: 05/22 Levaquin start: 05/21 Assessment/plan Left lower extremity cellulitis Patient empirically played on vancomycin and Levaquin, recommend discontinuing Levaquin. MRI pending, if negative for osteomyelitis/abscess can send patient home on oral Bactrim for total of 7 days. 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
--- NOTE | 2021-05-22 11:13 | RAD REPORT ---
EXAM DESCRIPTION: MRI - Foot Left Wo Cont - 05/22/2021 8:46 am CLINICAL HISTORY: osteomyelitis COMPARISON: MRI FOOT LEFT dated 11/26/2009 FINDINGS: Edema is present within the soft tissues along the dorsal aspect of the foot. There is no underlying abnormal signal within the osseous structures to suspect osteomyelitis. In the dorsal late ral aspect of the foot there is a 17 mm fluid collection. This is at the level of the talonavicular j oint. IMPRESSION: No evidence of osteomyelitis. Cellulitis with small fluid collection along the dorsal as pect of the foot that could represent a superficial abscess.
--- NOTE | 2021-05-22 13:19 | EKG ---
Test Date: 2021-05-21 Test Time: 15:50:07 Travel Assistant: JOMAR MEASUREMENT RESULTS: Intervals: Rate: 99 IN: 126 QRSD: 84 QT: 322 QTc: 413 Gallant: P: 53 IN: 126 QRS: 10 T: 23 INTERPRETIVE STATEMENTS: Normal sinus rhythm Nonspecific T wave abnormality Abnormal ECG No previous ECG available for comparison Electronically Signed On 05-22-21 13:16:27 WEB ANALYTICS DEVELOPER by Willian Samuel
[2021-05-22] MEDS: VANCOMYCIN 1.5 GM in NA CHLORIDE 0.9% 500 ML IVPB SCH (14:01)
[2021-05-22] MEDS: NA CHLORIDE 0.9% 1,000 ML IV SCH ×2 (14:02→19:40)
[2021-05-22] MEDS: Levofloxacin500mg IV 500 MG/100 ML BAG IV SCH (17:22)
[2021-05-22 21:49] VITALS: O2SAT 99
[2021-05-23] MEDS: VANCOMYCIN 1.5 GM in NA CHLORIDE 0.9% 500 ML IVPB SCH ×2 (01:28→13:54)
[2021-05-23] MEDS: NA CHLORIDE 0.9% 1,000 ML IV SCH (09:00)
[2021-05-23] MEDS ORDERED: FUROSEMIDE 20 MG/ 2ML VIAL IV ONE (13:45)
[2021-05-23] MEDS ORDERED: HYDROCORTISONE SUC 100 MG INJ IV ONE (13:45)
--- NOTE | 2021-05-23 15:45 | P.PN ---
Subjective Date of Service: 05/22/21 Cellulitis has worsened. Patient wears worsening erythema and edema. Continue with antibiotic therapy. Review of Systems 10-point ROS is otherwise unremarkable Physical Examination - Vital Signs Temperature: 98 F Blood Pressure: 130/70 Pulse: 80 Respirations: 18 Pulse Ox (%): 96 - Physical Exam General: Alert, In no apparent distress, Oriented x3 Respiratory: Clear to auscultation bilaterally, Normal air movement Cardiovascular: Regular rate/rhythm, Normal S1 S2, No murmurs Gastrointestinal: Normal bowel sounds, Soft and benign, Non-distended, No tenderness, No rebound, No guarding Musculoskeletal: No clubbing, Swelling, Erythema, Tenderness, Warmth Integumentary: Tenderness/swelling, Erythema, Warmth Neurological: Normal speech, Abnormal gait, Abnormal strength, Abnormal sensation, Abnormal cranial nerve function - Studies Microbiology Data (last 24 hrs): 05/21/21 15:42 Clean Catch Urine [place] Count - Final >100,000 CFU/ML. 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 Continue with IV antibiotic 2. Continue with local wound care 3. Infectious disease consultation appreciated 4. Hep-Lock IV; gently diurese; IV steroids 5. Monitor CBC 6. Strict blood sugar monitoring 7. Pain control 8. GI and DVT prophylaxis Discharge Plan: Home Plan to discharge in: Greater than 2 days - Advance Directives Does patient have a Living Will: No Does patient have a Durable POA for Healthcare: No - Code Status/Comfort Care Code Status: Full Code Critical Care: No Time Spent Managing PTS Care (In Minutes): 45
--- NOTE | 2021-05-23 15:58 | P.PN ---
Date of Service: 05/23/21 Subjective Patient's erythema is still not improving. Edema is slightly improved. MRI with no osteomyelitis Review of Systems 10-point ROS is otherwise unremarkable Physical Examination - Vital Signs Reviewed - Physical Exam General: Alert, In no apparent distress, Oriented x3 Respiratory: Clear to auscultation bilaterally, Normal air movement Cardiovascular: Regular rate/rhythm, Normal S1 S2, No murmurs Gastrointestinal: Normal bowel sounds, Soft and benign, Non-distended, No tenderness, No rebound, No guarding Musculoskeletal: No clubbing, Swelling, Erythema, Tenderness, Warmth Integumentary: Tenderness/swelling, Erythema, Warmth Neurological: Normal speech, Abnormal gait, Abnormal strength, Abnormal sensation, Abnormal cranial nerve function Assessment & Plan - Problems (Diagnosis) (1) Cellulitis of left foot Current Visit: Yes Status: Acute (2) Left leg cellulitis Current Visit: Yes Status: Acute (3) Paraplegia Current Visit: No Status: Chronic (4) Spina bifida Current Visit: No Status: Chronic (5) MANAGER TRANSITION (ventriculoperitoneal) shunt status Current Visit: No Status: Chronic - Plan Continue with plan of care as mentioned below: 1. Continue with IV antibiotic 2. Continue with local wound care 3. Infectious disease consultation appreciated 4. Hep-Lock IV; anticipate discharge in the morning as long as swelling is improved 5. Monitor CBC 6. Strict blood sugar monitoring 7. Pain control 8. Continue with diuretics and anti-inflammatory 9. GI and DVT prophylaxis
[2021-05-23] MEDS: Levofloxacin500mg IV 500 MG/100 ML BAG IV SCH (17:47)
[2021-05-23] MEDS: HYDROCORTISONE SUC 100 MG INJ IV SCH (22:09)
[2021-05-23] MEDS: BENZONATATE 100 MG CAP PO PRN (22:10)
[2021-05-24] MEDS: VANCOMYCIN 1.5 GM in NA CHLORIDE 0.9% 500 ML IVPB SCH (02:33)
[2021-05-24] MEDS: HYDROCORTISONE SUC 100 MG INJ IV SCH (09:00)
[2021-05-24] MEDS: BENZONATATE 100 MG CAP PO PRN (09:41)
[2021-05-24 11:52] VITALS: BP 131/77; TEMP 97.2
--- NOTE | 2021-05-24 20:28 | P.DS ---
Discharge Date: 05/24/21 Disposition: ROUTINE DISCHARGE Discharge Condition: GOOD Reason for Admission: Cellulitis of the left foot and left lower extremity - Problems (1) Cellulitis of left foot Status: Acute (2) Left leg cellulitis Status: Acute (3) Paraplegia Status: Chronic (4) Spina bifida Status: Chronic (5) TRIPE SCRAPER (ventriculoperitoneal) shunt status Status: Chronic Brief History of Present Illness: Patient is a 25-year-old gentleman who came to the hospital with cellulitis of the left foot. According to the patient the cellulitis appeared suddenly. Patient's left foot was significantly swollen and it extended up to the left lower extremity. Decision was made to bring patient to the hospital for further evaluation. Patient is a paraplegic from spina bifida. Patient will be admitted to the hospital for further evaluation. Hospital Course: Patient has done well during hospital stay. Patient's swelling has improved. Patient's erythema is much better as well. At this time, patient is stable for discharge with antibiotics. Continue with anti-inflammatory and continue with blood pressure control at discharge. Vital Signs/Physical Exam: Temp Pulse Resp BP Pulse Ox 97.2 F 99 H 16 131/77 96 05/24/21 11:50 05/24/21 11:50 05/24/21 11:50 05/24/21 11:50 05/24/21 11:50 General: Alert, In no apparent distress, Oriented x3 Laboratory Data at Discharge: WBC 7.60 K/uL (4.3-10.9) D 05/22/21 05:19 Hgb 13.4 g/dL (13.6-17.9) L 05/22/21 05:19 Hct 39.9 % (39.6-49.0) 05/22/21 05:19 Plt Count 295 K/uL (152-406) 05/22/21 05:19 PT 12.5 SECONDS (9.5-12.5) 05/21/21 15:09 INR 1.09 05/21/21 15:09 APTT 32.2 SECONDS (24.3-36.9) 05/21/21 15:09 Sodium 141 mmol/L (136-145) 05/22/21 05:19 Potassium 3.7 mmol/L (3.5-5.1) 05/22/21 05:19 BUN 12 mg/dL (7-18) 05/22/21 05:19 Creatinine 0.61 mg/dL (0.55-1.3) 05/22/21 05:19 Glucose 107 mg/dL (74-106) H 05/22/21 05:19 Total Bilirubin 0.4 mg/dL (0.2-1.0) 05/21/21 15:09 AST 13 U/L (15-37) L 05/21/21 15:09 ALT 35 U/L (12-78) 05/21/21 15:09 Alkaline Phosphatase 83 U/L (45-117) 05/21/21 15:09 Amylase 81 U/L (25-115) 05/21/21 15:09 Lipase 85 U/L (73-393) 05/21/21 15:09 Home Medications: Benzonatate [Tessalon Perle*] 100 mg PO BID 05/22/21 Sulfamethoxazole/Trimethoprim [Bactrim Ds Tablet] 1 each PO BID #14 tablet 05/24/21 hydroCHLOROthiazide [Hydrochlorothiazide] 12.5 mg PO DAILY #10 tablet 05/24/21 predniSONE [Prednisone*] 20 mg PO DAILY #5 tab 05/24/21 New Medications: Sulfamethoxazole/Trimethoprim [Bactrim Ds Tablet] 1 each PO BID #14 tablet hydroCHLOROthiazide [Hydrochlorothiazide] 12.5 mg PO DAILY #10 tablet predniSONE [Prednisone*] 20 mg PO DAILY #5 tab Physician Discharge Instructions: OK TO DC IV AND DC HOME FOLLOW-UP WITH PRIMARY CARE PROVIDER IN 1-2 WEEKS RETURN TO THE ER IF symptoms worsen Follow up with broomcorn grader in [address] LEAHY AT [phone] IF ANY QUESTIONS REGARDING HOSPITAL STAY. PLEASE CALL THE FLOOR AT [phone] IF ANY MEDICATION OR NURSING QUESTIONS. Diet: AHA Activity: Fall precautions Followup: Heidy Amaro DO [Primary Care Provider] - (Call to schedule appointment.) Time spent managing pt's care (in minutes): 35
== END 2021-05-24 13:21 | disposition home or self-care (01) | DRG 603 ==
LOC: ER 13:35 → ERHOLD 16:53 → 2ND 20:11
PROVIDERS: ADMIT Hospitalist; ATTEND Hospitalist
DX: L03.116 Cellulitis of left lower limb (principal); G82.20 Paraplegia, unspecified; N39.0 Urinary tract infection, site not specified; Q05.9 Spina bifida, unspecified; Z98.2 Presence of cerebrospinal fluid drainage device; Z20.822 Contact with and (suspected) exposure to COVID-19; B96.20 Unspecified Escherichia coli [E. coli] as the cause of diseases classified elsewhere
CPT/HCPCS: 36415; 51702; 71045; 80048; 80076; 80202; 81003; 81015; 82150; 82550; 82553; 82947; 83605; 83690; 84145; 84484; 85025; 85610; 85652; 85730; 87040; 87077; 87086; 87088; 87186; 93005; 96365; 96375; 99284; J1170; J1720; J1940; J3370; J7030; J7040; U0003